=== PATIENT | male | born 1945 | race Caucasian/White ===

== ENCOUNTER 2022-01-25 09:35 | Day surgery (SDC) | payer OTHER, SELFPAY ==
[2022-01-25 10:14] VITALS: BP 152/84; PULSE 69; RESP 16; TEMP 36.2; O2SAT 98
[2022-01-25] MEDS: Tropicam./Phenyleph. (1/2.5%) 5 ML BTL OS ×3 (10:21→10:31)
--- NOTE | 2022-01-25 11:01 | W.ANESPRE ---
General Info Date of Service Date Performed: 01/25/22 Height: 5 ft 7 in Weight: 74.7 kg Body Mass Index (BMI): 25.7 Surgical Procedure: Operation Date: 01/25/22 12:40 Proposed Procedure Side Surgeon p Cataract Extraction with IOL Implant Left Augie Amaya MD Meds Allergies and Home Medications Allergies Allergy/AdvReac Type Severity Reaction Status Date / Time No Known Allergies Allergy Verified 01/25/22 10:08 Home Medication Medication Instructions Recorded allopurinol 100 mg tablet 200 mg PO DAILY 01/23/22 apixaban 5 mg tablet (Eliquis) 5 mg PO BID 01/23/22 atorvastatin 10 mg tablet 10 mg PO DAILY 01/23/22 diltiazem HCl 180 mg capsule,24 180 mg PO DAILY 01/23/22 hr,extended release furosemide 20 mg tablet 20 mg PO DAILY 01/23/22 lisinopril 10 mg tablet 10 mg PO DAILY 01/23/22 metoprolol succinate 200 mg 200 mg PO DAILY 01/23/22 tablet,extended release 24 hr omeprazole 20 mg tablet,delayed 20 mg PO DAILY 01/23/22 release simvastatin 20 mg tablet 20 mg PO HS 01/23/22 Current Visit Medications: Current Medications Generic Name Dose Route Start Last Admin Trade Name Freq PRN Reason Stop Dose Admin Acetaminophen 1,000 mg 01/25/22 06:00 Acetaminophen 500 Mg Tab PO Q4H PRN PRN Miscellaneous Medication 0 ml 01/25/22 06:00 Prednisolone 1%, Moxifloxacin 0.5%, Nepafenac 0.1% 5ml Btl OS DIRECTED [facility] Miscellaneous Medication 0 ml 01/25/22 06:00 01/25/22 10:31 Tropicam./Phenyleph. (1/2.5%) 5 Ml Btl OS 1 drp DIRECTED GINNA Administration Tetracaine HCl 0 ml 01/25/22 06:00 Tetracaine 0.5% 4 Ml Btl OS DIRECTED [facility] Medical History Medical History Alcohol dependence Anemia Degeneration of lumbosacral intervertebral disc Gastric ulcer without hemorrhage or perforation Gout HLD (hyperlipidemia) Hypertensive disorder Multiple lung nodules Overweight PAF (paroxysmal atrial fibrillation) Surgical History Surgical History History of esophagogastroduodenoscopy (EGD) Hx of cataract extraction Hx of colonoscopy Tobacco Smoking/Tobacco Use Status: Current every day Tobacco Type: cigarettes Alcohol Alcohol Intake: current Alcohol intake frequency: 0-2 drinks per day Alcohol type: beer Substance Use Substance use: Never Substance use type: does not use Vital Signs and Lab Results Vital Signs Most Recent Vital Signs in EMR: Most Recent Vital Signs Temp Pulse Resp BP Pulse Ox 36.2 C L 69 16 152/84 H 98 01/25/22 10:14 01/25/22 10:14 01/25/22 10:14 01/25/22 10:14 01/25/22 10:14 Lab Results Blood Type / Crossmatch: No Data to Display Complete Blood Count: No Data to Display Complete Metabolic Panel: No Data to Display Liver Function Panel: No Data to Display Coagulation Panel: No Data to Display Cardiac Panel: No Data to Display Arterial Blood Gas: No Data to Display Venous Blood Gas: No Data to Display Pancreas Panel: No Data to Display Thyroid Panel: No Data to Display Infectious Disease: No Data to Display Blood Cultures: No Data to Display Toxicology Panel: No Data to Display Anesthesia Assessment and Plan Anesthesia History Personal History: No History of Anesthesia Complications Family History: No Family History of Anesthesia Complications Exercise Tolerance Exercise Tolerance: Metabolic Equivalents>4 Cardiac & Pulmonary Exam Cardiac Exam: Normal S1/S2 Heart Sounds Pulmonary Exam: Clear Bilateral Breath Sounds Implantable Cardiac Device Does patient have a Pacemaker or an ICD?: No ASA Classification ASA Score: ASA 3 Emergency Case?: No NPO Status NPO Status: NPO Clears >2 hours, Solids >8 hours Anesthesia Plan Resuscitation Status: Full Code Anesthesia Technique: MAC Anesthesia Airway Planned: Natural Airway Monitors Used: Standard Monitors
--- NOTE | 2022-01-25 11:23 | ANES.PREOP_ITS ---
General Info Date of Service Date Performed: 01/25/22 Height: 5 ft 7 in Weight: 74.7 kg Body Mass Index (BMI): 25.7 Surgical Procedure: Operation Date: 01/25/22 12:40 Proposed Procedure Side Surgeon p Cataract Extraction with IOL Implant Left Augie Amaya MD Meds Allergies and Home Medications Allergies Allergy/AdvReac Type Severity Reaction Status Date / Time No Known Allergies Allergy Verified 01/25/22 10:08 Home Medication Medication Instructions Recorded allopurinol 100 mg tablet 200 mg PO DAILY 01/23/22 apixaban 5 mg tablet (Eliquis) 5 mg PO BID 01/23/22 atorvastatin 10 mg tablet 10 mg PO DAILY 01/23/22 diltiazem HCl 180 mg capsule,24 180 mg PO DAILY 01/23/22 hr,extended release furosemide 20 mg tablet 20 mg PO DAILY 01/23/22 lisinopril 10 mg tablet 10 mg PO DAILY 01/23/22 metoprolol succinate 200 mg 200 mg PO DAILY 01/23/22 tablet,extended release 24 hr omeprazole 20 mg tablet,delayed 20 mg PO DAILY 01/23/22 release simvastatin 20 mg tablet 20 mg PO HS 01/23/22 Current Visit Medications: Current Medications Generic Name Dose Route Start Last Admin Trade Name Freq PRN Reason Stop Dose Admin Acetaminophen 1,000 mg 01/25/22 06:00 Acetaminophen 500 Mg Tab PO Q4H PRN PRN Miscellaneous Medication 0 ml 01/25/22 06:00 Prednisolone 1%, Moxifloxacin 0.5%, Nepafenac 0.1% 5ml Btl OS DIRECTED COUNT [facility]CLUDES [facility] Miscellaneous Medication 0 ml 01/25/22 06:00 01/25/22 10:31 Tropicam./Phenyleph. (1/2.5%) 5 Ml Btl OS 1 drp DIRECTED GINNA Administration Tetracaine HCl 0 ml 01/25/22 06:00 Tetracaine 0.5% 4 Ml Btl OS DIRECTED COUNT INCLUDES THE [facility] PFSH Medical History Medical History Alcohol dependence Anemia Degeneration of lumbosacral intervertebral disc Gastric ulcer without hemorrhage or perforation Gout HLD (hyperlipidemia) Hypertensive disorder Multiple lung nodules Overweight PAF (paroxysmal atrial fibrillation) Surgical History Surgical History History of esophagogastroduodenoscopy (EGD) Hx of cataract extraction Hx of colonoscopy Tobacco Smoking/Tobacco Use Status: Current every day Tobacco Type: cigarettes Alcohol Alcohol Intake: current Alcohol intake frequency: 0-2 drinks per day Alcohol type: beer Substance Use Substance use: Never Substance use type: does not use Vital Signs and Lab Results Vital Signs Most Recent Vital Signs in EMR: Most Recent Vital Signs Temp Pulse Resp BP Pulse Ox 36.2 C L 69 16 152/84 H 98 01/25/22 10:14 01/25/22 10:14 01/25/22 10:14 01/25/22 10:14 01/25/22 10:14 Lab Results Blood Type / Crossmatch: No Data to Display Complete Blood Count: No Data to Display Complete Metabolic Panel: No Data to Display Liver Function Panel: No Data to Display Coagulation Panel: No Data to Display Cardiac Panel: No Data to Display Arterial Blood Gas: No Data to Display Venous Blood Gas: No Data to Display Pancreas Panel: No Data to Display Thyroid Panel: No Data to Display Infectious Disease: No Data to Display Blood Cultures: No Data to Display Toxicology Panel: No Data to Display Anesthesia Assessment and Plan Anesthesia History Personal History: No History of Anesthesia Complications Family History: No Family History of Anesthesia Complications Exercise Tolerance Exercise Tolerance: Metabolic Equivalents>4 Cardiac & Pulmonary Exam Cardiac Exam: Normal S1/S2 Heart Sounds Pulmonary Exam: Clear Bilateral Breath Sounds Implantable Cardiac Device Does patient have a Pacemaker or an ICD?: No Airway Exam Known Difficult Airway: No Mallampati Class: 3 Mouth Opening: Normal (> 3cm) Thyromental Distance: Greater than 3 cm Neck Range of Motion: Full ROM Neck Circumference: Normal Teeth Condition: Normal Dentition and Removable Dentures/Plates Upper ASA Classification ASA Score: ASA 3 Emergency Case?: No NPO Status NPO Status: NPO Clears >2 hours, Solids >8 hours Anesthesia Plan Resuscitation Status: Full Code Anesthesia Technique: MAC Anesthesia Airway Planned: Natural Airway Monitors Used: Standard Monitors
[2022-01-25 11:37] VITALS: BMI 25.7
[2022-01-25] MEDS: Midazolam/Ketamine/Ondansetron (3/25/2MG) 1 TAB 1 EACH SL (11:45)
[2022-01-25] MEDS: Trypan Blue 0.06% 0.5 ML SYR (11:55)
[2022-01-25] MEDS: Tetracaine 0.5% 4 ML BTL OS (11:57)
[2022-01-25] MEDS: Balanced Salt Soln.-PLUS 500 ML BAG (11:58)
[2022-01-25] MEDS: Duovisc Viscoelastic System EACH 1 EACH (11:59)
[2022-01-25] MEDS: Lidocaine 2% Jelly 6 ML SYR (12:00)
[2022-01-25] MEDS: Povidone-Iodine Ophth 30 ML BTL (12:02)
--- NOTE | 2022-01-25 12:15 | W.PM.DSUDISC ---
Discharge Plan Discharge Details Attending Provider: Augie Amaya Primary Care Provider: Efrain Johnson Home Meds and New Rx's Prescriptions: No Action diltiazem HCl 180 mg Capsule,Extended Release 24 Hr 180 mg PO DAILY atorvastatin 10 mg Tablet 10 mg PO DAILY metoprolol succinate 200 mg Tablet Extended Release 24 Hr 200 mg PO DAILY allopurinol 100 mg Tablet 200 mg PO DAILY simvastatin 20 mg Tablet 20 mg PO HS lisinopril 10 mg Tablet 10 mg PO DAILY furosemide 20 mg Tablet 20 mg PO DAILY omeprazole 20 mg Tablet,Delayed Release (Dr/Ec) 20 mg PO DAILY Eliquis 5 mg Tablet 5 mg PO BID Discharge Instructions Stand Alone Forms: Post-op Topical Cataract, Erica Howard (DSU) DS: Diagnosis Discharge Diagnosis (1) Nuclear sclerotic cataract of left eye: Status: Resolved (2) Posterior subcapsular age-related cataract of left eye: Status: Resolved
--- NOTE | 2022-01-25 12:16 | W.PM.OP ---
Date of service: 01/25/22 Time of Service: 11:16 Operative Note Operative Note DATE OF PROCEDURE: 01/25/22 PRE-OP DIAGNOSIS: Dense nuclear/posterior subcapsular cataract, left eye Poor red reflex, left eye secondary to cataract POST-OP DIAGNOSIS: same PROCEDURE: Cataract extraction using phacoemulsification with intraocular lens implant, left eye, using capsular staining with Vision Blue SURGEON: Augie Amaya ANESTHESIA TYPE: Local By Surgeon and MAC Refer to Anesthesia Record COMPLICATIONS: None Patient was transported to: same day Patient's condition: stable Implants: [employer] / [employer] Tecnis [id number] Indications: Progressive decreased vision due to cataract, left eye, with poor red reflex Procedure Description: CATARACT SURGERY OPERATIVE REPORT PREOPERATIVE DIAGNOSIS: 1. Dense nuclear/posterior subcapsular cataract, left eye 2. Poor red reflex secondary to #1 POSTOPERATIVE DIAGNOSIS: Same OPERATION: 1. Cataract extraction using phacoemulsification with posterior chamber intraocular lens implant, left eye. 2. 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 He has now developed a significant nuclear/posterior subcapsular cataract in the left eye. The option of cataract surgery was offered to the patient and he felt he was symptomatic enough that he wished to proceed. PROCEDURE: The correct surgical eye was identified and marked as the left eye and the pupil was dilated in the preoperative area using mydriatics and cycloplegics. The dilated pupil size was 5.5 mm. Oral sedation was administered in the form of an Imprimis MKO Melt (midazolam 3mg/ketamine 25mg/ondansetron 2mg). The patient was brought to the operating room where cardiopulmonary monitoring was instituted and surgical time-out was performed, confirming the correct operative eye and IOL power. Topical anesthesia was administered and ophthalmic povidone-iodine 5% was instilled into the conjunctival fornices. Lidocaine gel was applied to the cornea and the foreign-ocular area was prepped with Betadine 10% solution and draped in the usual sterile fashion for intraocular surgery, including an aperture drape. A Tegaderm transparent film dressing was cut in half and used to cover the lashes and lid margins. Care was taken to sequester the lashes and lid margins under the Tegaderm dressing. A lid speculum was placed between the lids of the operative eye and the Sergo LuxOR Revalia operating microscope was maneuvered into position. Sanjana scissors were then used to make a conjunctival buttonhole approximately 6mm posterior to the limbus in the inferonasal quadrant. Blunt dissection was carried out to expose bare sclera, and a blunt-tipped sub-tenon?s anesthesia cannula was introduced and passed posteriorly along the globe where non-preserved plain lidocaine was injected into posterior sub-Tenon?s space. A sideport knife was used to make a paracentesis port superiorly/superiortemporally. Intraocular phenylephrine/lidocaine was injected int the anterior chamber.. Air was then injected into the anterior chamber, followed by Vision Blue, which was painted over the anterior capsule and then irrigated out using BSS. The anterior chamber was filled with viscoelastic. A 2.4 mm keratome knife was used to create a 2-plane near clear corneal tunnel extending approximately 2 mm into clear cornea temporally. A flap was raised on the anterior capsule and capsulorhexis forceps were used to complete a continuous curvilinear capsulorhexis of 5.0 mm. Balanced salt solution was then used to perform cortical cleaving hydrodissection and nuclear hydrodelineation until the lens could be freely rotated within the capsular bag. The lens nucleus was then disassembled and removed within the capsular bag and iris plane using phacoemulsification. Residual cortical material was removed using the 45-degree angled silicone I/A tip with 0.3mm port. The posterior capsule was carefully polished to remove as much residual lens epithelial cells as safely possible. There were some residual areas of posterior subcapsular plaque which could not be safely removed. The capsular bag was then inflated and the anterior chamber deepened with viscoelastic. The lens implant described above was inserted into the capsular bag using the ART Gambell Injector. A Kuglen hook was used to dial the IOL into position. Residual viscoelastic was then removed first from posterior to the IOL, then from the anterior chamber using the I/A handpiece. The lens implant was noted to center nicely within the capsular bag. The incisions were stromally hydrated, and the anterior chamber was reformed using BSS. Then 0.5cc of moxifloxacin 1.0mg/ml were injected into the capsular bag and anterior chamber. The incisions were checked with a Weck spear and found to be secure. Several drops of ophthalmic povidone-iodine 5% were then applied to the eye followed by two drops of Imprimis combination prednisolone/moxifloxacin/nepafenac solution. The drapes were removed and a clear plastic protective eye shield was placed over the eye. The patient was then returned to Same Day Surgery in stable condition.
[2022-01-25 12:21] VITALS: BP 136/70; PULSE 61; RESP 20; TEMP 36.2; O2SAT 97
--- NOTE | 2022-01-25 12:36 | W.ANESPOSTOP ---
Postoperative Evaluation Date, Time and Location Date Performed: 01/25/22 Time Performed: 11:36 Patient Location: Day Surgery Unit Vital Signs Most Recent Imported Vital Signs: Most Recent Vital Signs Temp Pulse Resp BP Pulse Ox 36.2 C L 61 20 136/70 97 01/25/22 12:21 01/25/22 12:21 01/25/22 12:21 01/25/22 12:21 01/25/22 12:21 Pain Score Most Recent Pain Score: Most Recent Pain Score Pain Level 0 01/25/22 12:21 Assessment Mental Status: Awake (Alert & Oriented to Patient Baseline) Airway and Respiratory Function: Patent airway with normal (patient baseline) respiratory exam Cardiovascular Function: Hemodynamically Stable Hydration Status: Adequately Hydrated Nausea & Vomiting: No Nausea or Vomiting Pain: Pt. Denies Any Pain Peripheral Nerve Block: Patient did not receive a nerve block
[2022-01-25 12:50] VITALS: BP 121/63; PULSE 60; RESP 16; TEMP 36.4; O2SAT 97
== END 2022-01-25 12:53 | disposition home or self-care (01) ==
PROVIDERS: PCP Internal Medicine; Visit Provider Ophthalmology
PROC: (CPT 66984; principal; 2022-01-25 12:30)
DX: H25.042 Posterior subcapsular polar age-related cataract, left eye (principal); D64.9 Anemia, unspecified; I10 Essential (primary) hypertension; I48.0 Paroxysmal atrial fibrillation
CPT/HCPCS: 66984; V2632